=== PATIENT | female | born 1965 | race Hispanic/Latino ===

== ENCOUNTER → 2022-04-16 | Outpatient (CLI) | payer BC ==
[~2022-04-16] MED LIST: IOHEXOL-350 50ML VIAL IV ONE
== END | disposition home or self-care (01) ==
LOC: RAH 09:52
PROVIDERS: ATTEND Family Medicine
DX: R74.8 Abnormal levels of other serum enzymes (principal); R10.13 Epigastric pain
CPT/HCPCS: 74170; Q9967

== ENCOUNTER 2025-07-03 09:26 | Observation (INO) | payer BC ==
[~2025-07-03] VITALS: Ht 160 cm; Wt 67.6 kg
--- NOTE | 2025-07-03 09:40 | ERN ---
General Chief Complaint: Chest Pain Stated Complaint: CHEST PAIN Time Seen by MD: 09:28 Source: patient, EMS History of Present Illness Initial Comments Patient is a 60-year-old female coming in complaining of chest pain. Per patient the chest pain began yesterday. She states that initiated with the epigastric discomfort and pressure radiating upper chest region. Long with this she states that she had left sided chest pain which has since resolved. The pain is more pressure-like now. She has a history of hypertension. Allergies: Coded Allergies: No Known Drug Allergies (Unverified Allergy, Unknown, 07/03/25) Past Medical History Past Medical History: Arthritis, Fibromyalgia, Hypertension Past Surgical History: Appendectomy, Hysterectomy, ROS Dictation CONSTITUTIONAL: No chills, no fever, no weakness, no diaphoresis, no malaise. HEAD/FACE: No signs of trauma. EENT: No eye pain, no blurred vision, no tearing, no double vision, no ear pain, no ear discharge, no nose pain, no nasal congestion, no throat pain, no throat swelling, no mouth pain. RESPIRATORY: No cough, no orthopnea, no SOB, no stridor, no wheezing. CARDIOVASCULAR: chest pain, no edema, no palpitations, no syncope. GASTROINTESTINAL/ABDOMINAL: No abdominal pain, no constipation, no diarrhea, no nausea, no vomiting. GENITOURINARY: No abnormal discharge, no dysuria, no frequent urination, no hematuria. No complaints of pain in the genitals. MUSCULOSKELETAL: No back pain, no gout, no joint pain, no joint swelling, no muscle pain, no muscle stiffness, no neck pain. INTEGUMENTARY: No change in color, no change in hair/nails, no dryness, no lesion, no lumps, no rash. NEUROLOGICAL/PSYCH: No anxiety, not depressed, no emotional problem, no headache, no numbness, no pre-existing deficit, no history of seizures, no tremors, no weakness. HEMATOLOGIC/LYMPHATIC: Not anemic, no history of blood clots, no apparent bleeding, no bruising, glands not swollen. All Systems Negative, Except as Noted. Physical Exam Physical Exam Dictation VITAL SIGNS: Reviewed. GENERAL APPEARANCE: Alert, oriented x3, no acute distress, obese. HEAD AND FACE: Non-traumatic. EYES: PERRL, pink conjunctivas, eyelid no trauma, anterior chamber clear. EARS: Pinnas intact and no signs of trauma or erythema. Ear canals clear and no discharge. TMs no erythema. NOSE: No discharge, no bleeding. OROPHARYNX: Mouth normal, teeth no caries, tongue pink. Pharynx clear, no erythema. Tonsils no exudates, no abscesses noted. Mucous membrane moist. NECK: Supple, non-tender, no thyromegaly, no masses, no JVD, no bruits. BREAST: Deferred. CHEST: tenderness, no crepitus, no paradoxical movement, no retractions. LUNGS: Clear, well-ventilated, symmetric, no rales, no wheezing, no rhonchi, no stridor, good breath sounds bilaterally. HEART: Regular rate, regular rhythm, no murmur, no gallops. VASCULAR: No peripheral edema. ABDOMEN: Soft, positive bowel sounds, nondistended, no guarding, nontender, no rebound, no masses no hepatomegaly, no splenomegaly, no [place]'s sign, no hernias. RECTAL: Deferred. GENITAL: Deferred. NEUROLOGICAL: Normal speech, gross motor function intact, gross sensory function intact. MUSCULOSKELETAL: Neck nontender, full range of motion, back nontender, full range of motion. EXTREMITIES: Nontender, full range of motion. SKIN: Color pink, dry, no turgor, no rash, no lacerations, no abrasions, no contusions. LYMPHATICS: Deferred. Results Laboratory and Microbiology Lab and Micro Result Laboratory Tests Test 07/03/25 09:52 07/03/25 10:05 07/03/25 11:21 White Blood Count 7.4 K/uL (4.8-10.8) Red Blood Count 4.75 MIL/uL (4.00-5.50) Hemoglobin 13.8 g/dL (12.0-16.0) Hematocrit 41.6 % (36-48) Mean Corpuscular Volume 87.6 fL (79-99) Mean Corpuscular Hemoglobin 29.1 pg (27.0-33.0) Mean Corpuscular Hemoglobin Concent 33.2 g/dL (32.0-36.0) Red Cell Distribution Width 12.5 % (11.0-15.5) Platelet Count 201 K/uL (130-400) Mean Platelet Volume 11.5 fL (7.5-10.5) H Immature Granulocyte % (Auto) 0.4 % (0-1) Neutrophils (%) (Auto) 62.5 % (40.0-77.0) Lymphocytes (%) (Auto) 28.1 % (21.0-51.0) Monocytes (%) (Auto) 7.9 % (3.0-13.0) Eosinophils (%) (Auto) 0.8 % (0.0-8.0) Basophils (%) (Auto) 0.3 % (0.0-5.0) Neutrophils # (Auto) 4.6 K/uL (1.8-7.7) Lymphocytes # (Auto) 2.1 K/uL (1.0-4.8) Monocytes # (Auto) 0.6 K/uL (0.1-1.0) Eosinophils # (Auto) 0.06 K/uL (0.00-0.70) Basophils # (Auto) 0.02 K/uL (0.00-0.20) Absolute Immature Granulocyte (auto 0.03 K/uL (0-1) Nucleated Red Blood Cells 0.0 % (0.0-0.19) Sodium Level 135 mmol/L (136-145) L Potassium Level 3.8 mmol/L (3.5-5.1) Chloride Level 100 mmol/L (101-111) L Carbon Dioxide Level 30 mmol/L (21-32) Blood Urea Nitrogen 21 mg/dL (7-18) H Creatinine 0.6 mg/dL (0.5-1.0) Glomerular Filtration Rate Calc 103 mL/min (>90) Random Glucose 111 mg/dL (70-105) H Total Calcium 8.5 mg/dL (8.5-10.1) Magnesium Level 2.10 mg/dL (1.80-2.40) Total Bilirubin 1.0 mg/dL (0.2-1.0) Aspartate Amino Transf (AST/SGOT) 28 U/L (10-37) Alanine Aminotransferase (ALT/SGPT) 30 U/L (12-78) Alkaline Phosphatase 106 U/L (50-136) Troponin I High Sensitivity < 4 ng/L (4-50) L < 4 ng/L (4-50) L Total Protein 7.6 g/dL (6.0-8.3) Albumin 3.7 g/dL (3.5-5.0) Urine Color COLORLESS (YELLOW) Urine Appearance CLEAR (CLEAR) Urine pH 6.0 (5.0-8.0) Urine Specific [place] 1.010 (1.001-1.031) Urine Protein NEGATIVE mg/dL (NEGATIVE) Urine Glucose (UA) NEGATIVE mg/dL (NEGATIVE) Urine Ketones NEGATIVE mg/dL (NEGATIVE) Urine Occult Blood NEGATIVE (NEGATIVE) Urine Nitrate NEGATIVE (NEGATIVE) Urine Bilirubin NEGATIVE mg/dL (NEGATIVE) Urine Urobilinogen 0.2 mg/dL (0.2-1.0) Urine Leukocyte Esterase NEGATIVE James/uL Labs Reviewed?: Yes EKG/XRAY/US/CT/MRI EKG Comment [id number] time 9:39 a.m. Ventricular rate 64 Sinus rhythm LA [address] wave elevation or depression X-RAY Comment [address] [address] IMAGING REPORT Signed PATIENT: JOSE M DUMONT MR#: [id number] : 1965 SEX: F AGE: 60 LOCATION: [facility] ORDER 5 STATUS: [facility] REPORT#: [id number] SERVICE 4 REASON: cp ORDERING PHYSICIAN: ASIA MELGAR MD PROCEDURE: CXR1VW - CHEST 1VW CHEST 1VW REASON: cp COMPARISON: Prior study from 05/28/2017 is available. FINDINGS: Single view of the chest was obtained. Lungs are clear. Heart size is normal. There is no pulmonary vascular congestion. Mediastinum and bony thorax appear unremarkable. IMPRESSION: 1. Normal single view chest x-ray. DICTATED BY: ARIELLE WILLIS MD DATE: 07/03/25 1024 ELECTRONICALLY SIGNED BY: ARIELLE WILLIS MD DATE: 07/03/25 1028 [facility] MDM: Differential diagnosis: Chest pain, history of hypertension, Rationale: Tests considered and ordered secondary to shared decision making include: Previous outside records reviewed: Old ER visits. Risk of complication and/or morbidity or mortality of patient management: None Medications-Per medication reconciliation Need for hospitalization: Patient does meet criteria for hospitalization. Need for emergency major/minor surgery: No There are no social concerns with this patient. Prescription drug management Prescriptions will include symptomatic care Patient's prior external medical records from other ER visits were reviewed by me as indicated. Prior testing and results from previous visits were reviewed. Prior tests were taken into account with medical decision making and resource utilization, independent historian/historians were used to obtain complete medical history. I independently interpreted the test that were performed, results were reviewed by me and considered findings on radiology if ordered. Medical management and examination interpretation discussions were had by me w ith other qualified healthcare professionals as indicated for the patient's care. She will be admitted under the care of counts include 234 beds at the [facility] for ongoing management ED Course Orders Procedure Category Date Status Time Cbc With Differential LAB 07/03/25 Complete 09:35 Chest 1vw RAD 07/03/25 Resulted 09:35 12 Lead Ekg Tracing- EKG 07/03/25 Complete Technical 09:35 Magnesium LAB 07/03/25 Complete 09:35 Troponin I High LAB 07/03/25 Complete Sensitivity 09:35 Urinalysis Profile LAB 07/03/25 Complete 09:35 Comprehensive LAB 07/03/25 Complete Metabolic Panel 09:35 Pantoprazole 40mg Inj PHA 07/03/25 Complete (Protonix 40mg Inj 10:00 Lidocaine Hcl 2% PHA 07/03/25 Complete Viscous (Lidocaine Hcl 11:00 Mag/Alum/Simeth 30ml PHA 07/03/25 Complete (Maalox Plus 30ml) 11:00 Troponin I High LAB 07/03/25 Complete Sensitivity 11:12 Aspirin 325mg Tab PHA 07/03/25 Complete (Aspirin 325mg Tab) 11:30 Nitroglycerin 0.4mg PHA 07/03/25 In Process Sl Tab (Nitrostat) 11:30 Current Medications Medications (Trade) Dose Ordered Sig/Cynthia Route PRN Reason Start Time Stop Time Status Last Admin Dose Admin Al Hydroxide/Mg Hydroxide (MAALox PLUS 30ML) 30 ml ONCE ONCE PO 07/03/25 11:00 07/03/25 11:03 DC Aspirin (Aspirin 325mg Tab) 325 mg ONCE ONCE PO 07/03/25 11:30 07/03/25 11:31 DC Lidocaine HCl (Lidocaine HCl 2% Viscous) 10 ml ONCE ONCE PO 07/03/25 11:00 07/03/25 11:03 DC Nitroglycerin (Nitrostat) 0.4 mg AD PRN SL CHEST PAIN 07/03/25 11:30 08/02/25 11:29 Pantoprazole Sodium (PROTonix 40MG INJ) 40 mg ONCE ONCE IVP 07/03/25 10:00 07/03/25 10:01 DC 07/03/25 10:05 Vital Signs Date Time Temp Pulse Resp B/P (MAP) Pulse Ox O2 Delivery O2 Flow Rate FiO2 07/03/25 10:36 98.1 64 12 154/72 98 Room Air* 0 21 07/03/25 09:28 98.1 71 18 175/93 99 Room Air 0 DX & DISP Disposition: Inpatient Decision to Admit Time: 12:13 Departure Impression: Primary Impression: Chest pain Additional Impression: History of hypertension Condition: Stable Referrals: MINISTERIO MONTEMAYOR MD (PCP) ASIA MELGAR MD Jul 03, 2025 09:40
--- NOTE | 2025-07-03 09:50 | NUR ---
ASSUMED CARE AT THIS TIME
[2025-07-03 10:06] LABS: IMMATURE GRANULOCYTE ABSOLUTE 0.03 K/uL (0-1); NUCLEATED RED BLOOD CELLS 0.0 % (0.0-0.19); PLATELET COUNT (AUTO) 201 K/uL (130-400); RED BLOOD CELL COUNT(AUTO) 4.75 MIL/uL (4.00-5.50); RED CELL DISTRIBUTION WIDTH 12.5 % (11.0-15.5); WHITE BLOOD COUNT (AUTO) 7.4 K/uL (4.8-10.8)
[2025-07-03 10:09] LABS: CREATININE 0.6 mg/dL (0.5-1.0); GLOMERULAR FILTR. RATE CALC 103.0 mL/min (>90); GLUCOSE,RANDOM 111.0 mg/dL (70-105); SODIUM SERUM 135.0 mmol/L (136-145); UREA NITROGEN, BLOOD 21.0 mg/dL (7-18)
[2025-07-03 10:13] LABS: ASPARTATE AMINOTRANSFERASE 28.0 U/L (10-37); TOTAL PROTEIN, SERUM 7.6 g/dL (6.0-8.3)
--- NOTE | 2025-07-03 10:28 | HMCIMG ---
CHEST 1VW REASON: cp COMPARISON: Prior study from 05/28/2017 is available. FINDINGS: Single view of the chest was obtained. Lungs are clear. Heart size is normal. There is no pulmonary vascular congestion. Mediastinum and bony thorax appear unremarkable. IMPRESSION: 1. Normal single view chest x-ray.
--- NOTE | 2025-07-03 10:44 | EKG ---
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
[2025-07-03 10:55] LABS: APPEARANCE,URINE CLEAR (CLEAR); GLUCOSE, URINE (UA) NEGATIVE (NEGATIVE); LEUKOCYTE ESTERASE ,URINE NEGATIVE Leu/uL (NEGATIVE); NITRATE,URINE NEGATIVE (NEGATIVE); OCCULT BLOOD,URINE NEGATIVE (NEGATIVE)
[2025-07-03 11:02] LABS: ADD UA MICROSCOPIC NO
[2025-07-03] MEDS ORDERED: NITROGLYCERIN 0.4 MG SL TAB SL PRN (11:30)
[2025-07-03] MEDS ORDERED: ALBUTEROL 0.083% 2.5 MG/3 ML INH IH PRN (12:30)
[2025-07-03] MEDS ORDERED: LACTULOSE 20 GM/30 ML UDCUP PO PRN (12:30)
[2025-07-03] MEDS: LIDOCAINE HCL 2% VISCOUS 15 ML UDCUP PO ONE (12:48)
[2025-07-03] MEDS: MAG/ALUM/SIMETH 30 ML UDCUP PO ONE (12:48)
[2025-07-03] MEDS: ASPIRIN 325MG TAB PO ONE (12:48)
[2025-07-03] MEDS ORDERED: LISI1TAB49 PO (13:18)
--- NOTE | 2025-07-03 17:36 | HP ---
[facility] HISTORY & PHYSICAL Date Patient Seen: Jul 03, 2025 Time of Visit: 1256 Supervising Physician: Dr. Yan Primary Care Physician: Dr. Charles Simmons Outpatient Specialists: [ ] Inpatient Consults: PROBLEM LIST: Atypical angina Hypertension Lupus HPI: This is a 60-year-old female with past medical history significant for hypertension and lupus presenting to the emergency room for chest pain that initiated a yesterday. Patient states progressively was getting worse. Which prompted her to come to the emergency room she reports pain feeling like pressure that radiated to her back denied any shortness of breadth or becoming diaphoretic. When palpating patient's chest patient reports it replicates discomfort that she felt likely more musculoskeletal. However at time of visit patient is still voices of some chest discomfort. Denies any shortness of breadth. Denies any nausea vomiting or abdominal pain. At this time we will order a GI cocktail repeat another troponin level 1st two troponin levels have been negative. EKG was unremarkable. Chest x-ray unremarkable. We will also order echocardiogram. We will continue to monitor patient closely via telemetry and follow up tomorrow morning PAST MEDICAL HX: see above PAST SURGICAL HX: noncontributory SOCIAL HISTORY: No tobacco, ETOH, or illicit drug use Coded Allergies: No Known Drug Allergies (Unverified Allergy, Unknown, 07/03/25) REVIEW OF SYSTEMS: 12 point ROS reviewed with patient. Pertinent positives mentioned above. Otherwise negative. PHYSICAL EXAM: GENERAL: alert, weak, awake oriented x 3 HEENT: EOMI, Sclera non icteric, moist mucosa NECK: Supple, no JVD, trachea midline LUNGS: Clear breath sounds bilaterally. No wheezes HEART: Regular rate and rhythm. Normal S1 and S2, without murmurs ABD: Abdomen soft, nontender. Bowel sounds present EXT: No clubbing cyanosis or edema NEURO: Alert and oriented to person, follows commands Vital Signs (last 8hr) Date Time Temp Pulse Resp B/P (MAP) Pulse Ox O2 Delivery O2 Flow Rate FiO2 07/03/25 12:58 98.1 64 14 149/73 99 Room Air* 0 21 07/03/25 10:36 98.1 64 12 154/72 98 Room Air* 0 21 LABS: Hematology Labs: Test 07/03/25 09:52 Range/Units White Blood Count 7.4 4.8-10.8 K/uL Red Blood Count 4.75 4.00-5.50 MIL/uL Hemoglobin 13.8 12.0-16.0 g/dL Hematocrit 41.6 36-48 % Mean Corpuscular Volume 87.6 79-99 fL Mean Corpuscular Hemoglobin 29.1 27.0-33.0 pg Mean Corpuscular Hemoglobin Concent 33.2 32.0-36.0 g/dL Red Cell Distribution Width 12.5 11.0-15.5 % Platelet Count 201 130-400 K/uL Mean Platelet Volume 11.5 H 7.5-10.5 fL Immature Granulocyte % (Auto) 0.4 0-1 % Neutrophils (%) (Auto) 62.5 40.0-77.0 % Lymphocytes (%) (Auto) 28.1 21.0-51.0 % Monocytes (%) (Auto) 7.9 3.0-13.0 % Eosinophils (%) (Auto) 0.8 0.0-8.0 % Basophils (%) (Auto) 0.3 0.0-5.0 % Neutrophils # (Auto) 4.6 1.8-7.7 K/uL Lymphocytes # (Auto) 2.1 1.0-4.8 K/uL Monocytes # (Auto) 0.6 0.1-1.0 K/uL Eosinophils # (Auto) 0.06 0.00-0.70 K/uL Basophils # (Auto) 0.02 0.00-0.20 K/uL Absolute Immature Granulocyte (auto 0.03 0-1 K/uL Nucleated Red Blood Cells 0.0 0.0-0.19 % Chemistry Labs: Test 07/03/25 11:21 07/03/25 09:52 Range/Units Troponin I High Sensitivity < 4 L 4-50 ng/L Sodium Level 135 L 136-145 mmol/L Potassium Level 3.8 3.5-5.1 mmol/L Chloride Level 100 L 101-111 mmol/L Carbon Dioxide Level 30 21-32 mmol/L Blood Urea Nitrogen 21 H 7-18 mg/dL Creatinine 0.6 0.5-1.0 mg/dL Glomerular Filtration Rate Calc 103 >90 mL/min Random Glucose 111 H 70-105 mg/dL Total Calcium 8.5 8.5-10.1 mg/dL Magnesium Level 2.10 1.80-2.40 mg/dL Total Bilirubin 1.0 0.2-1.0 mg/dL Aspartate Amino Transf (AST/SGOT) 28 10-37 U/L Alanine Aminotransferase (ALT/SGPT) 30 12-78 U/L Alkaline Phosphatase 106 50-136 U/L Total Protein 7.6 6.0-8.3 g/dL Albumin 3.7 3.5-5.0 g/dL DIAGNOSTICS / RADIOLOGY RESULTS: na PLAN Follow up with echocardiogram in a.m. Continue to monitor via telemetry Give GI cocktail x1 now Continue to trend troponin level Possible discharge tomorrow morning NEURO: Minimize central acting medications as possible. Maintain fall precautions, adequate lighting during the day PULMONARY: Supplemental 02 as needed. Maintain aspiration precautions at all times CARDIOVASCULAR: Follow hemodynamics. Vital signs per facility protocol GI & NUTRITION: Continue with nutritional support. Continue stool softeners and laxatives as needed. KIDNEYS & ELECTROLYTES: Strict monitoring of intake, output and overall fluid balance. Avoid nephrotoxic medications to the extent possible. Medications to be dosed according to renal function. Monitor electrolytes and replace as needed ENDOCRINE: Maintain blood glucose between 100-180 at all times. Hypoglycemia protocol in place INFECTIOUS DISEASE: Trend temperature, WBC and procalcitonin level Follow cultures, deescalate antibiotics as soon as possible. Panculture if new onset fever ONCOLOGY/HEMATOLOGY/COAGULATION: Monitor for s/s of bleeding Monitor hemoglobin, coagulation studies as needed SKIN: Pressure ulcer prevention per facility protocol Specialty mattress ORTHO/REHAB: Continue PT/OT Prophylaxis: Continue GI and DVT prophylaxis Code Status: Full Resuscitation Disposition: TBD Other: Case discussed with supervising physician plan of care agreed NINI PA Jul 03, 2025 17:36
[2025-07-03 19:02] VITALS: BP 122/74; PULSE 69; RESP 17; TEMP 98.3
[2025-07-03 22:00] VITALS: BP 137/63; PULSE 94; RESP 16; TEMP 98.5
[2025-07-03 22:12] VITALS: BP 125/74; PULSE 70; RESP 18; TEMP 97.9; O2SAT 98
[2025-07-04] VITALS: BP 97/64; PULSE 65; RESP 18; TEMP 97.9
[2025-07-04 04:00] VITALS: BP 111/79; PULSE 77; RESP 18; TEMP 97.8
[2025-07-04 04:30] LABS: CREATININE 0.7 mg/dL (0.5-1.0); GLOMERULAR FILTR. RATE CALC 100.0 mL/min (>90); GLUCOSE,RANDOM 105.0 mg/dL (70-105); PHOSPHORUS 3.8 mg/dL (2.5-4.9); SODIUM SERUM 137.0 mmol/L (136-145); UREA NITROGEN, BLOOD 18.0 mg/dL (7-18)
--- NOTE | 2025-07-04 07:05 | HMCSR ---
APPROVED REPORT EXAM: Two-dimensional and M-mode echocardiogram with Doppler and color Doppler. INDICATION ICD: Chest pain R07.9 2D Dimensions RVDd3.4 cmLVEF(%)56.1 (>50%)LVED Vol(simp.)98.0 mL IVSd0.8 (0.7-1.1cm)FS(%)29 %LVES Vol(simp.)39.0 mL LVDd4.4 (3.8-5.6cm)LA (2D)3.7 (1.6-4.0cm)LVEF(%, simp.)60 % PWd1.0 (0.7-1.1cm)Ao Root(2D)2.6 (2.0-3.7cm)LA ESV INDEX (BP)23.81 mL/m2 IVSs1.0 cmLVOT diam1.9 (1.8-2.4cm) LVDs3.1 (2.5-4.0cm) PWs1.1 cm Deformation Strain Apical 4-16.7 % Apical 2-16.6 % Apical 3-21.7 % Global Strain-18.4 % M-Mode Dimensions EPSS0.3 cm LA (MM)3.8 (1.6-4.0cm) Ao Root(MM)2.5 (2.0-3.7cm) Aortic Valve AoV Vmax1.3 m/Zeyad Peak GR6.7 mmHgLVOT Vmax1.0 m/s AoV VTI0.2 mAo Mean GR3.7 mmHgLVOT VTI0.21 m INGRID (VMAX)2.23 cm2AVA (VTI) 2.5 cm2 Mitral Valve MV E Vmax58.7 cm/sDECEL Pflq423 ms MV A Vmax53.3 cm/sP 1/2 T55 ms E/A ratio1.1MVA (PHT)4.0 cm2 TDI E/E' Medial7.7E/E' Lateral6.9 Medial E' Peak V7.66 cm/sLateral E' Peak V8.46 cm/s Pulmonary Valve PV Vmax0.8 m/sPV VTI0.17 mPV Mean GR1.5 mmHg PV Peak GR2.6 mmHg Tricuspid Valve TR Vmax2.2 m/sRAP (EST) 3 flQfBXYL97.0 mmHg TR Peak GR21.0 mmHg Left Ventricle The left ventricle is normal size. GLS -18.0% There is normal LV segmental wall motion. There is norm al left ventricular wall thickness. LVEF is 55-60%. Indeterminate diastolic dysfunction. Right Ventricle The right ventricle is normal size. The right ventricular systolic function is normal. Atria The left atrium size is normal. The right atrium size is normal. Aortic Valve The aortic valve is normal in structure. No aortic regurgitation is present. There is no aortic valvu lar stenosis. Mitral Valve The mitral valve is normal in structure. There is no mitral valve regurgitation noted. There is no mi tral valve stenosis. Tricuspid Valve The tricuspid valve is normal in structure. There is trace of tricuspid valve regurgitation noted. Pulmonic Valve The pulmonary valve is normal in structure. There is no pulmonic valvular regurgitation. Great Vessels The aortic root is normal in size. The IVC is normal in size and collapses >50% with inspiration. Pericardium There is no pericardial effusion. Other Information Quality : Adequate Conclusion LVEF is 55-60%.
[2025-07-04 08:00] VITALS: BP 138/76; PULSE 55; RESP 18; TEMP 98
[2025-07-04] MEDS ORDERED: NON-FORMULARY MEDICATION 1 EACH (Lisinopril/Hydrochlorothiazide (Lisinopril-Hctz 10-12.5 m PO SCH (09:00)
--- NOTE | 2025-07-04 09:07 | NUR ---
DCP: HOME Sw meet with pt and her Yonny Awad [phone]. Pt works with Dr Charles Simmons who is her PCP. Pt denies need for assistance with her ADLS, ambulation or home management, pt repors she remains very active and independent. No provider, HH or HD. Uses [facility] for rx needs. Denies dc needs and will return home at dc Addendum: 07/04/25 at 0916 by COMFORT MAY SS Amended: Links added.
[2025-07-04] MEDS: ASPIRIN 81MG CHEW TAB PO SCH (10:14)
[2025-07-04] MEDS: LISINOPRIL 10 MG TABLET PO SCH (10:14)
[2025-07-04] MEDS: ENOXAPARIN SODIUM 40 MG/0.4 ML SYRINGE SQ SCH (10:16)
[2025-07-04 11:58] VITALS: BP 129/75; PULSE 64; RESP 18; TEMP 97.7
[2025-07-04 15:52] VITALS: BP 129/72; PULSE 70; RESP 19; TEMP 97.8
--- NOTE | 2025-07-04 16:45 | PN ---
[facility] PROGRESS NOTE Date Patient Seen: Jul 04, 2025 Time of Visit: 16:42 Supervising Physician: EYAL LANDERS Primary Care Physician: Dr. Charles Simmons Outpatient Specialists: [ ] Inpatient Consults: PROBLEM LIST: Atypical angina Hypertension Lupus INTERVAL HISTORY: PATIENT WAS SEEN AND EXAMINED BY ME AT BEDSIDE, THE PATIENT AT THIS TIME STATES SHE CONTINUES TO FEEL AN OCCASIONAL PRESSURE TO HER FRONT SUBSTERNAL CHEST REGION AND DOES NOT FEEL 100% LIKE HERSELF. Troponin levels have been negative x3, the patient is exposed to secondhand smoke but does not have any family history of coronary artery disease, sudden cardiac . She does not have any history of strokes or prior cardiac problems. Denies any cough, shortness for breath or recent viral infections. REVIEW OF SYSTEMS: 12 point ROS reviewed with patient. Pertinent positives mentioned above. Otherwise negative. PHYSICAL EXAM: GENERAL: alert, weak, awake oriented x 3 HEENT: EOMI, Sclera non icteric, moist mucosa NECK: Supple, no JVD, trachea midline LUNGS: Clear breath sounds bilaterally. No wheezes HEART: Regular rate and rhythm. Normal S1 and S2, without murmurs ABD: Abdomen soft, nontender. Bowel sounds present EXT: No clubbing cyanosis or edema NEURO: Alert and oriented to person, follows commands Vital Signs (last 8hr) Date Time Temp Pulse Resp B/P (MAP) Pulse Ox O2 Delivery O2 Flow Rate FiO2 07/04/25 15:52 97.9 70 19 129/72 97 Room Air 21 07/04/25 11:58 97.7 64 18 129/75 99 Room Air 21 LABS: Hematology Labs: Test 07/03/25 09:52 Range/Units White Blood Count 7.4 4.8-10.8 K/uL Red Blood Count 4.75 4.00-5.50 MIL/uL Hemoglobin 13.8 12.0-16.0 g/dL Hematocrit 41.6 36-48 % Mean Corpuscular Volume 87.6 79-99 fL Mean Corpuscular Hemoglobin 29.1 27.0-33.0 pg Mean Corpuscular Hemoglobin Concent 33.2 32.0-36.0 g/dL Red Cell Distribution Width 12.5 11.0-15.5 % Platelet Count 201 130-400 K/uL Mean Platelet Volume 11.5 H 7.5-10.5 fL Immature Granulocyte % (Auto) 0.4 0-1 % Neutrophils (%) (Auto) 62.5 40.0-77.0 % Lymphocytes (%) (Auto) 28.1 21.0-51.0 % Monocytes (%) (Auto) 7.9 3.0-13.0 % Eosinophils (%) (Auto) 0.8 0.0-8.0 % Basophils (%) (Auto) 0.3 0.0-5.0 % Neutrophils # (Auto) 4.6 1.8-7.7 K/uL Lymphocytes # (Auto) 2.1 1.0-4.8 K/uL Monocytes # (Auto) 0.6 0.1-1.0 K/uL Eosinophils # (Auto) 0.06 0.00-0.70 K/uL Basophils # (Auto) 0.02 0.00-0.20 K/uL Absolute Immature Granulocyte (auto 0.03 0-1 K/uL Nucleated Red Blood Cells 0.0 0.0-0.19 % Chemistry Labs: Test 07/04/25 03:47 07/03/25 17:45 07/03/25 09:52 Range/Units Sodium Level 137 136-145 mmol/L Potassium Level 3.9 3.5-5.1 mmol/L Chloride Level 100 L 101-111 mmol/L Carbon Dioxide Level 29 21-32 mmol/L Blood Urea Nitrogen 18 7-18 mg/dL Creatinine 0.7 0.5-1.0 mg/dL Glomerular Filtration Rate Calc 100 >90 mL/min Random Glucose 105 70-105 mg/dL Total Calcium 8.1 L 8.5-10.1 mg/dL Phosphorus Level 3.8 2.5-4.9 mg/dL Magnesium Level 2.10 1.80-2.40 mg/dL Troponin I High Sensitivity < 4 L 4-50 ng/L Total Bilirubin 1.0 0.2-1.0 mg/dL Aspartate Amino Transf (AST/SGOT) 28 10-37 U/L Alanine Aminotransferase (ALT/SGPT) 30 12-78 U/L Alkaline Phosphatase 106 50-136 U/L Total Protein 7.6 6.0-8.3 g/dL Albumin 3.7 3.5-5.0 g/dL DIAGNOSTICS / RADIOLOGY RESULTS: Pericardium There is no pericardial effusion. Other Information Quality : Adequate Conclusion LVEF is 55-60%. PLAN Proceed with stat D-dimer, sed rate, CRP and repeat EKG. Recommend CTA of the chest positive D-dimer. DC in a.m. if stable NEURO: Minimize central acting medications as possible. Maintain fall precautions, adequate lighting during the day PULMONARY: Supplemental 02 as needed. Maintain aspiration precautions at all times CARDIOVASCULAR: Follow hemodynamics. Vital signs per facility protocol GI & NUTRITION: Continue with nutritional support. Continue stool softeners and laxatives as needed. KIDNEYS & ELECTROLYTES: Strict monitoring of intake, output and overall fluid balance. Avoid nephrotoxic medications to the extent possible. Medications to be dosed according to renal function. Monitor electrolytes and replace as needed ENDOCRINE: Maintain blood glucose between 100-180 at all times. Hypoglycemia protocol in place INFECTIOUS DISEASE: Trend temperature, WBC and procalcitonin level Follow cultures, deescalate antibiotics as soon as possible. Panculture if new onset fever ONCOLOGY/HEMATOLOGY/COAGULATION: Monitor for s/s of bleeding Monitor hemoglobin, coagulation studies as needed SKIN: Pressure ulcer prevention per facility protocol Specialty mattress ORTHO/REHAB: Continue PT/OT Prophylaxis: Continue GI and DVT prophylaxis Code Status: Full Resuscitation Disposition: TBD Other: Case discussed with supervising physician plan of care agreed ILYA OLIVARES Jul 04, 2025 16:45
--- NOTE | 2025-07-04 18:44 | NUR ---
D DIMER 333 WITHIN NORMAL RANGE STANDING ORDER FOR CTA IF POSITIVE LEVEL NORMAL.
--- NOTE | 2025-07-04 18:53 | EKG ---
[facility] Test Date: 2025-07-04 Test Time: 18:49:17 Pat Name: JOSE M DUMONT Department: [facility] Room: 420 1 Gender: F Manager Programming: [id number] : [id number] Requested By: ILYA OLIVARES Order Number: [id number] Reading MD: Brando Scott Measurements Intervals [place] Rate: 64 P: 44 IL: 136 QRS: 39 QRSD: 90 T: 51 QT: 420 QTc: 433 Interpretive Statements Normal sinus rhythm INFERIOR INFARCT, OLD Electronically Signed On 07-05-2025 14:37:53 CDT by Brando Scott Please click the below link to view image of tracing.
[2025-07-04 20:00] VITALS: BP 126/74; PULSE 66; RESP 18; TEMP 98; O2SAT 98
[2025-07-05] VITALS: BP 129/75; PULSE 70; RESP 18; TEMP 97.8
[2025-07-05 03:59] VITALS: BP_SYST 67; PULSE 71; RESP 18; TEMP 97.6
[2025-07-05 06:50] VITALS: PULSE 78; RESP 18; O2SAT 99
[2025-07-05 08:00] VITALS: BP 112/64; PULSE 62; RESP 18; TEMP 98.4
[2025-07-05] MEDS ORDERED: ASPI-1005 PO (10:57)
--- NOTE | 2025-07-05 12:32 | NUR ---
dc hm: removed iv cath intact dressing to removal site jeanne well dc instructions given verbal understanding dc papers signed escorted via staff to front of hospital con stable
--- NOTE | 2025-07-05 23:58 | DS ---
[facility] DISCHARGE SUMMARY Date Patient Seen: Jul 05, 2025 Time of Visit: 23:58 Supervising Physician: [ ] Primary Care Physician: Dr. Charles Simmons Outpatient Specialists: [ ] Inpatient Consults: PROBLEM LIST: Chest Pain, Not ACS , ruled out PE ,resolved , 2/2 Musculoskeletal Hypertension Lupus HOSPITAL COURSE: This is a 60-year-old female with past medical history significant for hypertension and lupus presenting to the emergency room for chest pain that initiated a yesterday. Patient states progressively was getting worse. Which p rompted her to come to the emergency room she reports pain feeling like pressure that radiated to her back denied any shortness of breadth or becoming diaphoretic. When palpating patient's chest patient reports it replicates discomfort that she felt likely more musculoskeletal. Gi cocktail was given and troponins were negative x 3.EKG was unremarkable. Chest x-ray unremarkable. Echo revealed normal EF without valvular abnormalities, no evidence of pericardial effusion. D Dimer negative , Sed rate ,CRP normal No further testing warranted. Patient advised to Fu with PCP in 2-3 days. New Medications: Aspirin (Aspirin 81MG Chew Tab) 81 Mg Tab.chew 81 MG PO DAILY, #30 TAB.CHEW Continued Medications: Lisinopril/Hydrochlorothiazide (Lisinopril-Hctz 10-12.5 mg Tab) 10 Mg-12.5 Mg Tablet 1 TAB PO DAILY for 30 Days, #30 TAB 0 Refills PHYSICAL EXAM: GENERAL: alert, weak, awake oriented x 3 HEENT: EOMI, Sclera non icteric, moist mucosa NECK: Supple, no JVD, trachea midline LUNGS: Clear breath sounds bilaterally. No wheezes HEART: Regular rate and rhythm. Normal S1 and S2, without murmurs ABD: Abdomen soft, nontender. Bowel sounds present EXT: No clubbing cyanosis or edema NEURO: Alert and oriented to person, follows commands FOLLOW-UP: Follow-up with PCP in 2-3 days Shanna 1 week RECOMMENDATIONS: Follow up with Dr. Morris - Calcium Coronary CT ,stress if warranted by Dr. Morris This case was seen and discussed with my supervising physician. More than 30 minutes spent on discharge process, including evaluation of the patient, discussion with nursing staff, medication reconciliation and follow-up appointments ILYA OLIVARES Jul 05, 2025 23:58
== END 2025-07-05 12:30 | disposition home or self-care (01) ==
LOC: EDH 09:26 → EDHIP 12:11 → 4CH 22:09
PROVIDERS: ADMIT Internal Medicine Critical Care Medicine; ATTEND Internal Medicine Critical Care Medicine
DX: R07.89 Other chest pain (principal); I10 Essential (primary) hypertension; Z90.49 Acquired absence of other specified parts of digestive tract; Z90.710 Acquired absence of both cervix and uterus; Z98.890 Other specified postprocedural states; Z79.899 Other long term (current) drug therapy
CPT/HCPCS: 96374; 99284; 83735 ×2; 84484 ×3; 80053; 85025; 81003; 36415 ×2; 71045; 93306; 93356; 93005 ×2; 96372; 84100; 80048; 85378; 85651; 86140; G0378 ×48; J2470; J1650; 94664